=== PATIENT | female | born 1995 | race Caucasian/White ===

== ENCOUNTER 2022-04-11 23:42 | Emergency (ER) | payer OTHER ==
[~2022-04-11] VITALS: Ht 162.6 cm; Wt 95.3 kg
[2022-04-11 23:57] VITALS: BP 142/71
[2022-04-12] MEDS ORDERED: METH-647 PO (00:10)
[2022-04-12] MEDS ORDERED: LIDO30AD10 TP (00:10)
[2022-04-12] MEDS ORDERED: NAPR-1164 PO (00:10)
[2022-04-12] MEDS ORDERED: KETOROLAC TROMETHAMINE INJ 30 MG/ML VIAL ONE (00:28)
[2022-04-12] MEDS ORDERED: KETOROLAC TROMETHAMINE INJ 30 MG/ML VIAL IM ONE (00:30)
[2022-04-12] MEDS ORDERED: LIDOCAINE 5% (PATCH) 1 EA PATCH TP ONE (00:30)
--- NOTE | 2022-04-12 00:37 | NUR ---
Patient discharged to home in stable condition. Written and verbal after care instructions given. Patient verbalizes understanding of instruction.
== END 2022-04-12 00:37 | disposition home or self-care (01) ==
LOC: ER 23:42
DX: S29.012A Strain of muscle and tendon of back wall of thorax, initial encounter (principal); Z60.2 Problems related to living alone; X58.XXXA Exposure to other specified factors, initial encounter; Y93.89 Activity, other specified; Y92.89 Other specified places as the place of occurrence of the external cause; Y99.8 Other external cause status
CPT/HCPCS: 99283; 96372; J1885